=== PATIENT | female | born 2000 | race Caucasian/White ===

== ENCOUNTER 2021-03-28 11:33 | Emergency (ER) | payer OTHER, SELFPAY ==
[2021-03-28 11:56] VITALS: BP 125/82; PULSE 82; RESP 16; TEMP 36.7; O2SAT 98; BMI 45.1
[2021-03-28 12:03] LABS: UTC Strep Screen (Rapid) Negative (Negative)
--- NOTE | 2021-03-28 12:10 | HMH.EDUTC ---
[facility] [place] Disposition Clinical Impression: Bronchitis Sinusitis Qualifiers: Sinusitis location: unspecified location Chronicity: unspecified Qualified Code(s): J32.9 - Chronic sinusitis, unspecified Disposition: Home, Self-Care Condition on Discharge: Good Instructions: Sinusitis, DI for Sinusitis, DI for Acute Bronchitis Additional Instructions: ? Start antibiotic today. Be sure to complete entire prescription even if feeling better ? Monitor temp. Tylenol every 4 hours as needed and / or ibuprofen every 6 hours as needed ( As long as your primary care physician has told you that it ok to take both. For fever/aches/pains ER if no less than 101 despite Tylenol or Motrin ? Humidifier/vaporizer or hot steamy shower ? Inhaler every 4-6 hours as needed like we discussed. If unsure how to use it, ask pharmacist to demonstrate how. Should help open airways and improve cough, wheezing, and shortness of breath ? Mucinex during the day for your cough and cough suppressant only at night. Be sure to drink lots of water. Insurance may not cover a prescriptions for mucinex. Might be cheaper to get 400mg tablets and take 2 tablet in the morning, mid-day and evening with lots of water. Tessalon Perles will not cause drowsiness but use at bedtime to help stop cough so that you may get some rest. *Start steroid today. Helps with inflammation therefore, cough and wheezing. Follow directions on the package. Reviewed side effects. Patient reports taking them before. Follow up IMMEDIATELY for new or worsening of symptoms OR no noticeable improvement over the next 48-72 hours. 911 immediately for any life threatening symptoms such as chest pain or difficulty breathing Prescriptions: Albuterol Sulfate [Proventil-HFA 90mcg/puff Inh] 1 - 2 puffs IH Q4HP PRN #1 inh PRN Reason: Shortness Of Breath Transmission Status: Pending to [id number] methylPREDNISolone [Medrol 4mg tab] 4 mg PO DIRECTED #21 tab Transmission Status: Pending to [id number] Benzonatate [Tessalon Perle 100mg Cap*] 100 mg PO TID PRN #30 cap PRN Reason: Cough Transmission Status: Pending to [id number] Azithromycin [Z-Valente 250mg Tab] 250 mg PO DIRECTED #6 tab Transmission Status: Pending to [id number] Referrals: Provider,Referral, [Primary Care Provider] - As needed Time of Disposition: 12:26 Medical Decision Making - Miguel Inquiry Pt receiving controlled substance: No Miguel was queried for this patient: No Vital Signs: 03/28/21 11:56 Temperature 98.1 F Temperature Source Oral Pulse Rate [Right] 82 Respiratory Rate 16 Blood Pressure [Right Arm] 125/82 Blood Pressure Mean [Right Arm] 96 02 Sat by Pulse Oximetry 98 - Lab Data Lab results reviewed: Yes: I reviewed the patient's lab results. Lab Results 03/28/21 12:00: Strep Scn Rapid Clinic Negative Orders (Tests/Meds): ORDERS Category Date Time Status Strep Screen Confirmation Stat Micro 03/28/21 12:00 Received [facility] [place] HPI - General Stated complaint: cough, congestion Time Seen by Provider: 03/28/21 12:10 Mode of Arrival: Ambulatory Source of Information: Patient Limitations: No Limitations Description of Symptoms (Recalled from Triage Doc. by RN): pt states she has been sick about two weeks. it started with a sore throat. now she c/o a runny nose, head/chest congestion, cough with productive clear sputum with green chunks in it. HEENT Symptoms (Recalled from RN notes): Yes (nasal congestion) Resp Symptoms (Recalled from RN notes): Yes (chest congestion and productive cough) Skin Symptoms (Recalled from RN notes): No MS Symptoms (Recalled from RN notes): No Functional Status (Recalled from RN notes): na - History of Present Illness Provider Complaint: Patient states that she has been sick for about 2 weeks State that she has been having cough, sinus pain and pressure, headache, sore scratchy throat States that she feels like it is trying to move into
[2021-03-28 12:24] LABS: UTC Pregnancy Test, Urine Negative (Negative)
[2021-03-28 12:27] VITALS: BP 122/83; PULSE 79; RESP 17; TEMP 36.6
== END 2021-03-28 12:39 | disposition home or self-care (01) ==
PROVIDERS: Emergency Provider Nurse Practitioner; PCP Nurse Practitioner Family
DX: J20.9 Acute bronchitis, unspecified (principal); J32.9 Chronic sinusitis, unspecified; E11.9 Type 2 diabetes mellitus without complications
CPT/HCPCS: 81025; 87880; 99203; G0463

== ENCOUNTER 2022-02-19 13:14 | Emergency (ER) | payer OTHER, SELFPAY ==
[2022-02-19 13:15] VITALS: BP 129/87; PULSE 101; RESP 20; TEMP 38.3; O2SAT 98; BMI 42.7
--- NOTE | 2022-02-19 13:47 | XR_ITS ---
FINAL REPORT CLINICAL HISTORY: chest discomfort, pt states that they are experiencing SOA and chest tightness for the past two days FINDINGS: Two views of the chest were obtained. The heart size and pulmonary vascularity are within normal limits. The mediastinum is normal. No acute pulmonary abnormality is identified. There is no pneumothorax. The bony thorax is intact. IMPRESSION: No active cardiopulmonary disease. Reviewed, Interpreted and Dictated by Eitan Hutchins III, MD Transcribed by Suzi Delong Authenticated and [facility]
--- NOTE | 2022-02-19 13:51 | ECG_ITS ---
APPROVED REPORT Exam: Resting ECG HR:98 bpm ECG Measurements Heart Rate 98 AXES SD 131 P 13 QRSd 86 QRS 18 QT 319 T 0 QTc 375 Conclusion SINUS RHYTHM NORMAL ECG UNCONFIRMED REPORT Electronically signed by : Esequiel Gill MD 02/21/2022 17:33:52
[2022-02-19 13:58] VITALS: BP 129/87; PULSE 101; RESP 20; TEMP 38.3; O2SAT 98; BMI 38.7
[2022-02-19 14:39] LABS: Strep Scrn Group A (Rapid) Negative (Negative)
--- NOTE | 2022-02-19 14:53 | HMH.EDUTC ---
[facility] [place] Clinical Impression: Viral syndrome Disposition: Home, Self-Care Condition on Discharge: Good Instructions: DI for Viral Syndrome, DI for COVID-19 (Suspected or Confirmed ), Preventing the Spread of Coronavirus Discharge Instructions Additional Instructions: Drink plenty of fluids. Take tylenol or ibuprofen for pain or fever. Take the medications as directed. Follow up with your regular doctor. GO TO THE ER FOR ANY WORSENING SYMPTOMS Quarantine until you know the results of your covid-19 test. Notify your school or workplace of your results and follow their instructions regarding return to work/school. Prescriptions: Ondansetron [Zofran 4mg ODT] 4 mg PO Q8HP PRN #20 tab PRN Reason: Nausea Transmission Status: Received by [id number] Benzonatate [Benzonatate 100mg cap] 100 mg PO TIDP PRN #30 cap PRN Reason: Cough Transmission Status: Received by [id number] Azithromycin [Z-Valente 250mg Tab*] 250 mg PO UD DOSE PK #6 tab Transmission Status: Received by [id number] Referrals: Maris Cordon APRN [Primary Care Provider] - Forms: Work/School Release Time of Disposition: 16:30 Medical Decision Making - Medical Records Medical records reviewed: No: I reviewed the patient's medical records. - Miguel Inquiry Pt receiving controlled substance: No Vital Signs: 02/19/22 13:15 02/19/22 13:58 02/19/22 16:41 Temperature 101.0 F H 101.0 F H 99.2 F Temperature Source Oral Oral Pulse Rate 101 H Pulse Rate [Right Radial] 101 H 101 H Respiratory Rate 20 20 20 Blood Pressure 129/87 Blood Pressure [Right Arm] 129/87 129/87 Blood Pressure Mean [Right Arm] 101 101 Blood Pressure Source [Right Arm] Automatic Cuff Blood Pressure Position [Right Arm] Sitting 02 Sat by Pulse Oximetry 98 98 Oxygen Delivery Method Room Air - Lab Data Lab results reviewed: Yes: I reviewed the patient's lab results. Lab Results 02/19/22 14:12: Group A Strep Rapid Negative Orders (Tests/Meds): ED MEDICATIONS Discontinued Medications Generic Name Dose Route Start Last Admin Trade Name Freq PRN Reason Stop Dose Admin Sodium Chloride 1,000 mls @ 999 mls/hr 02/19/22 15:15 02/19/22 15:06 Sod Chlor 0.9% 1000ml Bag IV 02/19/22 16:15 999 mls/hr .Q1H1M SLICK Administration ORDERS Category Date Time Status Covid-19 Nasal PCR ([facility]) Routine Lab 02/19/22 14:12 Received Strep Screen Confirmation Stat Micro 02/19/22 14:12 Received Medical Decision Narrative: It took a long time to get the liter of ns infused due to her IV being positional. [facility] [place] HPI - General Stated complaint: sore throat, fever, cannot pee, heart palpitation Time Seen by Provider: 02/19/22 13:50 Description of Symptoms (Recalled from Triage Doc. by RN): patient comes in today with complaints of sore throat, fever, cough, dysuria, fatigue, headache, chest discomfort. symptoms began 2 days ago HEENT Symptoms (Recalled from RN notes): Yes Resp Symptoms (Recalled from RN notes): Yes Skin Symptoms (Recalled from RN notes): No MS Symptoms (Recalled from RN notes): No Functional Status (Recalled from RN notes): wnl - History of Present Illness Provider Complaint: She c/o sore throat, chest congestion, fever up to 103, body aches and malaise that began 2 days ago. She thinks that she is dehydrated from the fever that she has been running because she has not urinated since last night at 2200. She denies shortness of breath, but she does have chest pressure, pleuritic chest pain. Last night when her fever was very high she has having heart palpatations and tachycardia. - Related Data Home Medications Medication Instructions Recorded Confirmed Metformin HCl [Metformin HCl ER] 750 mg PO DAILY 10/27/18 10/27/18 Spironolactone [Spironolactone 25 mg PO DAILY 10/27/18 10/27/18 25mg Tablet] Previous Rx's Medication Instructions Recorded Azithromycin [Z-Valente 250mg
[2022-02-19 16:41] VITALS: BP 129/87; PULSE 101; RESP 20; TEMP 37.3
== END 2022-02-19 16:42 | disposition home or self-care (01) ==
LOC: ER 13:32 → UTC 13:34
PROVIDERS: Emergency Provider Nurse Practitioner Family; PCP Nurse Practitioner Family
DX: B34.9 Viral infection, unspecified (principal)
CPT/HCPCS: 71046; 87430; 93005; 96360; 99213; C9803; G0463; U0003; U0005